=== PATIENT | male | born 1955 | race Caucasian/White ===

== ENCOUNTER 2020-09-14 09:11 | Outpatient (CLI) | payer MEDICARE, OTHER ==
--- NOTE | 2020-09-14 12:08 | CT Report ---
PROCEDURE: Low Dose Lung Cancer Screen INDICATIONS: History of smoking. TECHNIQUE: Noncontrast low-dose 5 mm thick sections acquired from the pulmonary apices to the posterior costophr enic angles. 7 mm thick coronal and sagittal MIP reformats were then acquired. For radiation dose r eduction, the following was used: automated exposure control, adjustment of mA and/or kV according t o patient size. COMPARISON: None. FINDINGS: Image quality: Excellent. Lungs and pleura: No suspicious pulmonary nodule or mass. No focal consolidation. Mediastinum: Coronary and aortic atherosclerosis. Normal heart size. No pericardial effusion. No medi astinal or hilar adenopathy by CT size criteria. Bones and chest wall: No suspicious bony lesions. No vertebral body compression fractures. No axil jackie or supraclavicular adenopathy by size criteria. Normal thyroid. Abdomen: No acute finding in the included unenhanced upper abdomen. IMPRESSION: No suspicious pulmonary nodule or mass. Continued annual low-dose screening CT of the chest is recomm ended. Lung RADS category 1. Reviewed by: Jim Lai MD on 09/14/2020 12:06 PM PST Approved by: Jim Lai MD on 09/14/2020 12:06 PM PST Station ID: [id number]
== END 2020-09-14 09:12 | disposition home or self-care (01) ==
LOC: DI 09:11
PROVIDERS: ATTEND Student in an Organized Health Care Education/Training Program
DX: Z12.2 Encounter for screening for malignant neoplasm of respiratory organs (principal); Z87.891 Personal history of nicotine dependence
CPT/HCPCS: G0297 ×2